=== PATIENT | female | born 1960 | race Hispanic/Latino ===

== ENCOUNTER 2018-12-21 06:32 | Emergency (ER) | payer SELFPAY ==
--- NOTE | 2018-12-21 06:48 | EDPHYS ---
Physician Documentation [facility] Name: Lolly Asher Age: 58 yrs Sex: Female : 1960 Arrival Date: 12/21/2018 Time: 06:35 Bed 18 Private MD: ED Physician Yusuf Uribe HPI: 12/21 06:49 This 58 yrs old Female presents to ER via Unassigned with complaints of kb Laceration To Head. 06:49 The patient has a laceration related to: opened blanket washer and a metal piece that was kb in there cut head occurred at work, and there are no complicating factors. The injury was accidental. The laceration(s) is(are) located on the top of head. Onset: The symptoms/episode began/occurred just prior to arrival. Associated signs and symptoms: The patient has no apparent associated signs or symptoms. The patient has not experienced similar symptoms in the past. The patient has not recently seen a physician. Historical: - Allergies: 06:45 No Known Allergies; cc3 - PSHx: 06:45 ; Hernia repair; cc3 - Immunization history:: Adult Immunizations up to date, Last tetanus immunization: unknown. - Social history:: Smoking status: Patient/guardian denies using tobacco, never smoked. - Ebola Screening: : No symptoms or risks identified at this time. ROS: 06:49 Constitutional: Negative for fever, chills, and weight loss, Cardiovascular: Negative kb for chest pain, palpitations, and edema, Respiratory: Negative for shortness of breath, cough, wheezing, and pleuritic chest pain, Abdomen/GI: Negative for abdominal pain, nausea, vomiting, diarrhea, and constipation, MS/Extremity: Negative for injury and deformity, Neuro: Negative for headache, weakness, numbness, tingling, and seizure. 06:49 Skin: Positive for laceration(s), of the top of head. Exam: 06:49 Constitutional: This is a well developed, well nourished patient who is awake, alert, kb and in no acute distress. Head/Face: Normocephalic, atraumatic. Chest/axilla: Normal chest wall appearance and motion. Nontender with no deformity. No lesions are appreciated. Cardiovascular: Regular rate and rhythm with a normal S1 and S2. No gallops, murmurs, or rubs. Normal PMI, no JVD. No pulse deficits. Respiratory: Lungs have equal breath sounds bilaterally, clear to auscultation and percussion. No rales, rhonchi or wheezes noted. No increased work of breathing, no retractions or nasal flaring. Abdomen/GI: Soft, non-tender, with normal bowel sounds. No distension or tympany. No guarding or rebound. No evidence of tenderness throughout. MS/ Extremity: Pulses equal, no cyanosis. Neurovascular intact. Full, normal range of motion. Neuro: Awake and alert, GCS 15, oriented to person, place, time, and situation. Cranial nerves II-XII grossly intact. Motor strength 5/5 in all extremities. Sensory grossly intact. Cerebellar exam normal. Normal gait. 06:49 Skin: injury, laceration(s), the wound is approximately 0.5 cm(s), of the top of head, that can be described as clean, no foreign body, linear, without bleeding, well approximated.. Vital Signs: 06:45 BP 148 / 79; Pulse 70; Resp 18 S; Temp 98.6(O); Pulse Ox 98% on R/A; Weight 81.65 kg cc3 (R); Height 5 ft. 0 in. (152.40 cm) (R); 06:45 Body Mass Index 35.15 (81.65 kg, 152.40 cm) cc3 MDM: 06:46 Patient medically screened. kb 06:48 Data reviewed: vital signs, nurses notes. Data interpreted: Pulse oximetry: on room air kb is 100 %. Interpretation: normal. Counseling: I had a detailed discussion with the patient and/or guardian regarding: the historical points, exam findings, and any diagnostic results supporting the discharge/admit diagnosis, the need for outpatient follow up, a family practitioner, to return to the emergency department if symptoms worsen or persist or if there are any questions or concerns that arise at home. Administered Medications: 06:50 Drug: Tetanus-Diphtheria Toxoid Adult 0.5 ml {Customer Equipment Engineer: [employer]. Exp: cc3 08/16/2022. Lot #: [id number]. } Route: IM; Site: right deltoid; 07:00 Follow up: Response: No adverse reaction cc3 Disposition: 07:13 Co-signature as Attending Physician, Yusuf Uribe MD I agree with the assessment and jose plan of care. Disposition: 12/21/18 06:46 Discharged to Home. Impression: Laceration without foreign body of scalp. - Condition is Stable. - Discharge Instructions: Laceration Care, Adult, Jcld-mg-Ccyh, Head Injury, Adult, Lnov-is-Uuys. - Medication Reconciliation Form, Thank You Letter, Antibiotic Education, Prescription Opioid Use, Work release form form. - Follow up: Emergency Department; When: As needed; Reason: Worsening of condition. Follow up: Private Physician; When: 2 - 3 days; Reason: Recheck today's complaints, Continuance of care, Re-evaluation by your physician. Signatures: Bridgette Tang, KATHY-C YARN SALVAGER-Yusuf Vincent MD MD cha Munoz, Edgar, DICE DEALER DICE DEALER em Vy Preciado cc3 Corrections: (The following items were deleted from the chart) 07:11 06:46 12/21/2018 06:46 Discharged to Home. Impression: Laceration without foreign body em of scalp. Condition is Stable. Forms are Medication Reconciliation Form, Thank You Letter, Antibiotic Education, Prescription Opioid Use. Follow up: Emergency Department; When: As needed; Reason: Worsening of condition. Follow up: Private Physician; When: 2 - 3 days; Reason: Recheck today's complaints, Continuance of care, Re-evaluation by your physician. kb
--- NOTE | 2018-12-21 07:14 | ER ---
Nurse's Notes [facility] Name: Lolly Asher Age: 58 yrs Sex: Female : 1960 Arrival Date: 12/21/2018 Time: 06:35 Bed 18 Private MD: Diagnosis: Laceration without foreign body of scalp Presentation: 12/21 06:45 Presenting complaint: Patient states: Small cut wound to scalp sustained from a corner cc3 of a metal from falling on to it. Transition of care: patient was not received from another setting of care. Complicating Factors: There are no complicating factors for this patient. Onset of symptoms was December 21, 2018. Risk Assessment: Do you want to hurt yourself or someone else? Patient reports no desire to harm self or others. Initial Sepsis Screen: Does the patient meet any 2 criteria? No. Patient's initial sepsis screen is negative. Does the patient have a suspected source of infection? No. Patient's initial sepsis screen is negative. Care prior to arrival: None. 06:45 Method Of Arrival: Ambulatory cc3 06:45 Acuity: RACHELL 4 cc3 Triage Assessment: 06:45 General: Appears in no apparent distress. comfortable, Behavior is calm, cooperative, cc3 appropriate for age. Pain: Complains of pain in top of head. Injury Description: Laceration sustained to top of head is clean, superficial, 0.5 to 2.5 cm long, not bleeding, was sustained less than 30 minutes ago. is bleeding no active bleeding noted. Historical: - Allergies: 06:45 No Known Allergies; cc3 - PSHx: 06:45 ; Hernia repair; cc3 - Immunization history:: Adult Immunizations up to date, Last tetanus immunization: unknown. - Social history:: Smoking status: Patient/guardian denies using tobacco, never smoked. - Ebola Screening: : No symptoms or risks identified at this time. Screenin:45 Abuse screen: Denies threats or abuse. Denies injuries from another. Nutritional cc3 screening: No deficits noted. Tuberculosis screening: No symptoms or risk factors identified. Fall Risk Ambulatory Aid- None/Bed Rest/Nurse Assist (0 pts). Gait- Normal/Bed Rest/Wheelchair (0 pts) Mental Status- Oriented to own ability (0 pts). Assessment: 06:45 General: Appears in no apparent distress. comfortable, Behavior is calm, cooperative, cc3 appropriate for age. Pain: Complains of pain in top of head. Neuro: Level of Consciousness is awake, alert, obeys commands, Oriented to person, place, time, situation, Appropriate for age. Cardiovascular: Denies chest pain, Patient's skin is warm and dry. Respiratory: Airway is patent Respiratory effort is even, unlabored, Respiratory pattern is regular, symmetrical. GI: Abdomen is round non-distended. : No signs and/or symptoms were reported regarding the genitourinary system. EENT: No signs and/or symptoms were reported regarding the EENT system. Derm: Skin is intact, is healthy with good turgor, Skin is pink, warm \T\ dry. normal. Musculoskeletal: Circulation, motion, and sensation intact. Range of motion: intact in all extremities. Injury Description: Laceration sustained to top of head, scalp is clean, superficial, 0.5 to 2.5 cm long, not bleeding, was sustained less than 30 minutes ago. is bleeding no active bleeding noted. 07:11 Reassessment: Patient appears in no apparent distress at this time. Patient and/or iw family updated on plan of care and expected duration. Pain level reassessed. I agree with above assessment by Mich Floyd LVN. Vital Signs: 06:45 BP 148 / 79; Pulse 70; Resp 18 S; Temp 98.6(O); Pulse Ox 98% on R/A; Weight 81.65 kg cc3 (R); Height 5 ft. 0 in. (152.40 cm) (R); 06:45 Body Mass Index 35.15 (81.65 kg, 152.40 cm) cc3 ED Course: 06:35 Patient arrived in ED. ds1 06:37 Bridgette Tang FNP-C is PHCP. kb 06:37 Yusuf Uribe MD is Attending Physician. kb 06:45 Arm band placed on right wrist. Patient notified of wait time. cc3 06:45 Patient has correct armband on for positive identification. Bed in low position. Call cc3 light in reach. Side rails up X 1. Pulse ox on. NIBP on. 07:00 Report given to LOPEZ Epps. cc3 07:03 Triage completed. cc3 07:05 Wound care: to laceration located on top of head was cleaned with Hibiclens, Patient em tolerated well. 07:08 Mich Floyd LVN is Primary Nurse. em 07:10 No provider procedures requiring assistance completed. Patient did not have IV access em during this emergency room visit. Administered Medications: 06:50 Drug: Tetanus-Diphtheria Toxoid Adult 0.5 ml {Fish Agent: [employer]. Exp: cc3 08/16/2022. Lot #: [id number]. } Route: IM; Site: right deltoid; 07:00 Follow up: Response: No adverse reaction cc3 Outcome: 06:46 Discharge ordered by . buddy 07:11 Discharged to home ambulatory. em 07:11 Condition: good 07:11 Discharge instructions given to patient, Instructed on discharge instructions, follow up and referral plans. wound care, Demonstrated understanding of instructions, follow-up care, wound care. 07:11 Patient left the ED. em Signatures: Bridgette Tang, HEALTH PROGRAM ANALYST-C HEALTH PROGRAM ANALYST-Ckb Mich Floyd LVN LVN em Cherri Mathis ds1 Chani Williamson, RN RN iw Vy Preciado cc3 Corrections: (The following items were deleted from the chart) 17:53 07:15 Reassessment: Patient appears in no apparent distress at this time. Patient iw and/or family updated on plan of care and expected duration. Pain level reassessed. I agree with above assessment by Mich Floyd LVN iw
[2018-12-21] MEDS ORDERED: TETANUS & DIPHTHERIA TOX,ADULT 0.5 ML VIAL ONE (07:15)
== END 2018-12-21 07:11 | disposition home or self-care (01) ==
LOC: ER 06:32
DX: S01.01XA Laceration without foreign body of scalp, initial encounter (principal); Z23 Encounter for immunization
CPT/HCPCS: 90471; 90714; 99283

== ENCOUNTER 2024-03-29 12:32 | Emergency (ER) | payer BC ==
--- OUTSIDE RECORDS SUMMARY | 2024-03-29 12:35 | XMS REPORT | Continuity of Care Document ---
Author Name Unknown Address [address] [facility] [address] [place] [address] [facility] Address [address] [facility] [address] [place] [address] Care Team Providers Care Manager Supplier Name Role Phone Nathaniel Dunne Primary Care Physician AGAPITO HERNANDEZ Attending Clinician Unavailab JEFFREY Brooks Attending Clinician Unavail able NATHANIEL DUNNE Attending Clinician Unavailable NAYAN DANIELLE Attending Clinician UnavailNAYAN Ch Attending Clinician UnavailKATHIA Montes Attending Clinician Unavailable Mel Brito Attending Clinician MEL JAMES Attending Clinician Unavailable Unknown, Attending Attending Clinician Unavailab lukasz RICH Attending Clinician Unavailable HELEN DEY Attending Clinician Unavailable MD DAHIANA Attending Clinician Unavailab SHA Carpenter Attending Clinician Unavailable ROSI CANO [facility] Attending Clinicia n Unavailable MENDEZ LOJA Attending Clinician UnaDILCIA Velez Attending Clinician Unavailable ROSS COLBY Attending Clinician Unavailable LAB45 Attending Clinician Unavailable LAB90 Attending Clinician Unavailable Team, [facility] Attending Clinicia n Unavailable Raji ROBLES, Courtney Zavala Attending Clinician Unavailab GHAZALA Parikh Attending Clinician Unavailable Gege Dooley Attending Clinician [phone] Ghazala Cardozo PA-C Attending Clinician [phone] FLOYD GONZALEZ Attending Clinician Unavailable Doctor Unassigned, Shiro Attending Clinician U navailable GEGE BLOOM Attending Clinician UnavailAGAPITO Brar Admitting Clinician Unavailab lal Payers Payer Name Policy Type Policy Number Effective Date Expirati on Date Source [facility] [id number] 2019 00:00:00 [place] [id number] 2023 00:00:00 BCBS 2 [id number] 2023 00:00:00 Problems Condition Name Condition Details Condition Category Status Onset Date Resolution Date Last Treatment Date Treating Clinician Comments Source Left foot pain Left foot pain Disease Active 2023-05 00:00: 00 [facility] Closed displaced fracture of fifth metatarsal bone of left foot Closed displaced fracture of fifth metatarsal bone of left foot Disease Active 2023-05 00:00: 00 [facility] DM type 2 with diabetic mixed hyperlipid emia (multi HCC) DM type 2 with diabetic mixed hyperlipid emia (multi HCC) Disease Active 2022-05 00:00: 00 Rosi Sedeyviold - Externa l Eczema Eczema Disease Active 2022-05 00:00: 00 Rosi Sedeyviold - Externa l HTN (hypertens ion) HTN (hypertens ion) Disease Active 2022-05 00:00: 00 Rosi Sedeyviold - Externa l Obesity Obesity Disease Active 2022-05 00:00: 00 Rosi Sedeyviold - Externa l Psoriasis Psoriasis Disease Active 2022-05 00:00: 00 Rosi Seybold - Externa l Chronic back pain Chronic back pain Disease Active 2022-05 00:00: 00 Rosi Seybold - Externa l Hypertensi on Hypertensi on Disease Active 2- 00:00: 00 [facility] Obesity Obesity Disease Active 07-23 00:00: 00 [facility] Allergies, Adverse Reactions, Alerts Allergy Name Allergy Type Status Severity Reaction(s) Onset Date Inactive Date Treating Clinician Comments Source NO KNOWN ALLERGIE S Drug Class Active [facility] Social History Social Habit Start Date Stop Date Quantity Comments Source ASSERTION Not Rosi Frias - External History of Occupation Rosi Frias - External Sexual orientation [facility] Alcoholic beverage intake 2024-03-29 00:00:00 2024-03-29 00:00:00 Current drinker of alcohol (finding) Rosi Frias - External History of Social function 2024-03-27 00:00:00 2024-03-27 00:00:00 [facility] Alcohol Comment 2024-03-07 00:00:00 2024-03-07 00:00:00 Socially [facility] Alcohol intake 2023-08-17 00:00:00 2023-08-17 00:00:00 Current drinker of alcohol (finding) Rosi Frias - External Tobacco use and exposure 2023-05-05 00:00:00 2023-05-05 00:00:00 Smokeless tobacco non-user Rosi Frias - External Education 2023-04-28 00:00:00 2023-04-28 00:00:00 16 Rosi Frias - External Sex 2023-04-04 16:25:04 2023-04-04 16:25:04 Female (finding) Rosi Frias - External Exposure to SARS-CoV-2 (event) 2021-05-14 00:00:00 2021-06-13 10:16:00 Not sure [facility] History SDOH Alcohol Frequency 2019-07-22 00:00:00 2019-07-22 00:00:00 2 [facility] History SDOH Alcohol Std Drinks 2019-07-22 00:00:00 2019-07-22 00:00:00 1 [facility] History SDOH Alcohol Binge 2019-07-22 00:00:00 2019-07-22 00:00:00 2 [facility] Sex assigned at 1960 00:00:00 1960 00:00:00 [facility] Smoking Status Start Date Stop Date Source Never smoked tobacco Rosi Wilcox External Medications Ordered Medication Name Filled Medication Name Start Date Stop Date Current Medication? Ordering Clinician Indication Dosage Frequency Signature (SIG) Comments Components Source Betamethaso ne Dipropionat e 0.05 % apply externally Cream 2023-05 12:13: 57 03-29 00:00 :00 No Q.5D Apply 1 applicatio n. topically 2 times daily. [facility] Atorvastati n Calcium 20 MG oral Tablet 2023-05 00:00: 00 Yes [id number] 3 20mg QD Take 1 tablet (20 mg total) by mouth nightly. [facility] Losartan Potassium (COZAAR) 50 MG oral Tablet 2023-05 00:00: 00 Yes [id number] 50mg QD Take 1 tablet (50 mg total) by mouth daily. [facility] hydroCHLORO thiazide 25 MG oral Tablet 2023-05 00:00: 00 Yes [id number] 25mg QD Take 1 tablet (25 mg total) by mouth daily. [facility] Tirzepatide 7.5 MG/0.5ML subcutaneou s Solution Auto-inject or 2023-05 00:00: 00 Yes [id number] 3 7.5mg Q1W Inject 7.5 mg into the skin once a week. [facility] Mounjaro 7.5 MG/0.5ML solution pen-injecto r 2023-05 09:38: 49 Yes INJECT 7.5 MG INTO THE SKIN ONCE A WEEK. [facility] traMADol (Ultram) 50 MG tablet 2023-05 00:00: 00 Yes [id number] 50mg Q6H Take 1 tablet (50 mg total) by mouth every 6 (six) hours if needed for severe pain. [facility] traMADoL 50 mg tablet 2023-05 00:00: 00 03-08 04:59 :00 Yes [id number] 50mg Take 1 tablet by mouth every 8 (eight) hours as needed for Pain (scale 7-10) for up to 3 days. Indication s: acute pain [facility] Tirzepatide (Mounjaro) 7.5 MG/0.5ML subcutaneou s Solution Pen-injecto r 5-10 00:00: 00 03-29 00:00 :00 No [id number] 3 7.5mg Q1W Inject 0.5 mL (7.5 mg total) into the skin once a week. [facility] Meloxicam 15 MG oral Tablet 08-24 00:00: 00 03-29 00:00 :00 No 15mg QD Take 1 tablet (15 mg total) by mouth daily. [facility] Tramadol HCl (ULTRAM) 50 MG oral Tablet 08-23 00:00: 00 Yes 50mg Q.[id number] 3D Take 1 tablet (50 mg total) by mouth 3 times daily as needed for pain. [facility] Methocarbam ol 750 MG oral Tablet 08-23 00:00: 03-29 00:00 :00 No TAKE ONE (1) TABLET(S) BY MOUTH THREE TIMES A DAY FOR PAIN NEEDED, (3 TABLETS MAX PER DAY). [facility] Hyoscyamine Sulfate 0.125 MG sublingual SL Tab 08-16 00:00: 00 03-29 00:00 :00 No [id number] .125mg Q4H Take 1 tablet (0.125 mg total) by mouth every 4 hours as needed for cramping. [facility] Ondansetron (ZOFRAN) 4 MG oral TABLET DISPERSIBLE 08-16 00:00: 00 03-29 00:00 :00 No [id number] 4mg Q.[id number] 3D Take 1 tablet (4 mg total) by mouth every 8 hours as needed for nausea. [facility] Tirzepatide (Mounjaro) 5 MG/0.5ML subcutaneou s Solution Pen-injecto r 2-28 00:00: 00 Yes [id number] 3 5mg Inject 0.5 mL (5 mg total) into the skin once a week. [facility] hydroCHLORO thiazide 25 MG oral Tablet 07-26 00:00: 00 03-29 00:00 :00 No [id number] 25mg QD Take 1 tablet (25 mg total) by mouth daily. [facility] Tizanidine HCl 2 MG oral Tablet 07-26 00:00: 00 03-29 00:00 :00 No [id number] 2mg QD Take 1 tablet (2 mg total) by mouth nightly as needed. [facility] Betamethaso ne Dipropionat e 0.05 % apply externally Cream 06-22 11:00: 27 Yes Apply 1 applicatio n. topically 2 times daily. [facility] Clobetasol Propionate 0.05 % apply externally Ointment 06-22 00:00: 00 03-29 00:00 :00 No [id number] Apply to affected areas twice daily for up to two weeks. Then use as needed to affected areas.. [facility] Atorvastati n Calcium 20 MG oral Tablet 05-29 00:00: 00 03-29 00:00 :00 No [id number] 3 20mg QD Take 1 tablet (20 mg total) by mouth daily. [facility] Cetirizine (ZYRTEC) 10 MG oral Tablet 2022-05 00:00: 00 Yes 10mg Take 1 tablet (10 mg total) by mouth daily. [facility] Cetirizine (ZYRTEC) 10 MG oral Tablet 2022-05 00:00: 00 03-29 00:00 :00 No 1{tbl} QD Take 1 tablet (10 mg total) by mouth daily. [facility] Atorvastati n Calcium 20 MG oral Tablet 2022-05 00:00: 00 Yes [id number] 3 20mg Take 1 tablet (20 mg total) by mouth daily. [facility] Betamethaso ne Dipropionat e 0.05 % apply externally Cream 2022-05 11:18: 57 Yes Apply 1 applicatio n. topically 2 times daily. [facility] hydroCHLORO thiazide 25 MG oral Tablet 2022-05 00:00: 00 Yes [id number] 25mg Take 1 tablet (25 mg total) by mouth daily. [facility] Amlodipine Besylate 10 MG oral Tablet 2022-05 00:00: 00 05-05 00:00 :00 No [id number] 10mg Take 1 tablet (10 mg total) by mouth daily. [facility] hydroCHLORO thiazide 12.5 MG oral Capsule 2022-05 15:21: 26 04-28 00:00 :00 No 12.5mg Take 1 capsule (12.5 mg total) by mouth daily. [facility] Losartan Potassium (COZAAR) 50 MG oral Tablet 2022-05 15:16: 53 04-28 00:00 :00 No 50mg Take 1 tablet (50 mg total) by mouth daily. [facility] Metformin HCl 500 MG oral Tablet 2022-05 15:07: 20 04-28 00:00 :00 No 500mg Take 1 tablet (500 mg total) by mouth daily (with breakfast) . [facility] Desipramine HCl 25 MG oral Tablet 2022-05 15:06: 24 04-28 00:00 :00 No 25mg Take 1 tablet (25 mg total) by mouth. [facility] Atenolol 25 MG oral Tablet 2022-05 15:05: 46 04-28 00:00 :00 No 25mg Take 1 tablet (25 mg total) by mouth. [facility] Betamethaso ne Dipropionat e 0.05 % apply externally Cream 2022-05 15:02: 31 Yes Apply 1 applicatio n. topically 2 times daily. [facility] Tirzepatide (Mounjaro) 2.5 MG/0.5ML subcutaneou s Solution Pen-injecto r 2022-05 00:00: 00 Yes [id number] 3 2.5mg Inject 0.5 mL (2.5 mg total) into the skin once a week. [facility] Tizanidine HCl 2 MG oral Tablet 2022-05 00:00: 00 Yes [id number] 2mg QD Take 1 tablet (2 mg total) by mouth nightly as needed. [facility] hydroCHLORO thiazide 12.5 MG oral Capsule 2022-05 00:00: 00 Yes [id number] 12.5mg Take 1 capsule (12.5 mg total) by mouth daily. [facility] Losartan Potassium (COZAAR) 50 MG oral Tablet 2022-05 00:00: 00 03-29 00:00 :00 No [id number] 50mg QD Take 1 tablet (50 mg total) by mouth daily. [facility] Cetirizine HCl (ZyrTEC Allergy) 10 MG oral Capsule 2022-05 00:00: 00 06-22 00:00 :00 No [id number] 10mg Take 1 capsule (10 mg total) by mouth daily. [facility] Mounjaro 2.5 MG/0.5ML subcutaneou s Solution Pen-injecto r 2022-05 0- 00:00: 00 04-28 00:00 :00 No INJECT 2.5 MG SUBCUTANEO USLY WEEKLY. [facility] desipramine 25 mg tablet 06-13 10:23: 17 Yes 25mg Take 25 mg by mouth. [facility] atenoloL 25 mg tablet 06-13 10:23: 16 Yes 25mg Take 25 mg by mouth. [facility] benzonatate 200 mg capsule 06-13 00:00: 00 06-24 05:59 :00 No [id number] 200mg Take 1 capsule by mouth 3 (three) times daily as needed for Cough for up to 10 days. [facility] citalopram 10 mg tablet 06-06 00:00: 00 Yes 10mg Take 10 mg by mouth daily. [facility] TRUE METRIX GLUCOSE TEST STRIP strip 2020-05 00:00: 00 Yes USE TO TEST BLOOD SUGAR TWICE A DAY. [facility] TRUE METRIX AIR GLUCOSE METER Misc 2020-05 00:00: 00 Yes USE TO TEST BLOOD SUGAR TWICE A DAY. [facility] ondansetron 4 mg disintegrat ing tablet 11-17 00:00: 00 Yes 4mg Take 1 tablet by mouth every 4 (four) hours as needed for Nausea and Vomiting (N/V). [facility] Immunizations Ordered Immunization Name Filled Immunization Name Date Status Comments Source Tdap- (Boostrix, Adacel) Unknown Completed Rosi Seybold - External Shingles IM (Shingrix) Unknown Completed Rosi Seybold - External Influenza, Injectable, Mdck, Preservative Free, Quadrivalent Unknown Completed Rosi Seybold - External Tdap- (Boostrix, Adacel) Unknown Completed Rosi Seybold - External Shingles IM (Shingrix) Unknown Completed Rosi Seybold - External Influenza, Injectable, Mdck, Preservative Free, Quadrivalent Unknown Completed Rosi Seybold - External Tdap- (Boostrix, Adacel) Unknown Completed Rosi Seybold - External Shingles IM (Shingrix) Unknown Completed Rosi Seybold - External Influenza, Injectable, Mdck, Preservative Free, Quadrivalent Unknown Completed Rosi Seybold - External Tdap- (Boostrix, Adacel) Unknown Completed Rosi Seybold - External Shingles IM (Shingrix) Unknown Completed Rosi Seybold - External Influenza, Injectable, Mdck, Preservative Free, Quadrivalent Unknown Completed Rosi Seybold - External Tdap- (Boostrix, Adacel) Unknown Completed Rosi Seybold - External Shingles IM (Shingrix) Unknown Completed Rosi Seybold - External Influenza, Injectable, Mdck, Preservative Free, Quadrivalent Unknown Completed Rosi Seybold - External Vital Signs Vital Name Observation Time Observation Value Comments S myke Systolic blood pressure 2024-03-29 17:06:00 124 mm[Hg] Rosi Avelar ld - External Diastolic blood pressure 2024-03-29 17:06:00 78 mm[Hg] Rosi Avelar ld - External Heart rate 2024-03-29 17:06:00 85 /min Jarad Frias - External Body temperature 2024-03-29 17:06:00 36.56 Kadie Rosi Frias - External Respiratory rate 2024-03-29 17:06:00 16 /min Rosi Frias - External Body height 2024-03-29 17:06:00 152.4 cm Samira ey ybold - External Body weight 2024-03-29 17:06:00 82.283 kg Samira ey Seybold - External BMI 2024-03-29 17:06:00 35.43 kg/m2 Samira ey ybold - External Oxygen saturation in Arterial blood by Pulse oximetry 2024-03-29 17:06:00 99 /min Rosi krishnan - External Body height 2024-03-27 15:23:00 [facility] Body weight 2024-03-27 15:23:00 78[facility] BMI 2024-03-27 15:23:00 33.59 kg/m2 [facility] Body height 2024-03-14 15:03:00 152.4 cm [facility] Body weight 2024-03-14 15:03:00 78.019 [facility] BMI 2024-03-14 15:03:00 33.59 kg/m2 [facility] Body height 2024-03-07 14:36:00 152.4 cm [facility] Body weight 2024-03-07 14:36:00 78.019 [facility] BMI 2024-03-07 14:36:00 33.59 kg/m2 [facility] Systolic blood pressure 2024-03-04 23:27:00 147 mm[Hg] [facility] Diastolic blood pressure 2024-03-04 23:27:00 79 mm[Hg] [facility] Heart rate 2024-03-04 23:24:00 80 /min [facility] Body temperature 2024-03-04 23:24:00 37 Kadie [facility] Respiratory rate 2024-03-04 23:24:00 16 /min [facility] Body height 2024-03-04 23:24:00 152.4 cm [facility] Body weight 2024-03-04 23:24:00 79.107 kg [facility] BMI 2024-03-04 23:24:00 34.06 kg/m2 [facility] Oxygen saturation in Arterial blood by Pulse oximetry 2024-03-04 23:24:00 100 /min [facility] Systolic blood pressure 2023-05-05 18:03:00 146 mm[Hg] Rosi Seybo ld - External Diastolic blood pressure 2023-05-05 18:03:00 80 mm[Hg] Rosi Seybo ld - External Heart rate 2023-05-05 18:03:00 64 /min Kelse y Seybold - External Body temperature 2023-05-05 17:15:00 36.83 Kadie Rosi Seybold - External Respiratory rate 2023-05-05 17:15:00 16 /min Rosi Seybold - External Body height 2023-05-05 17:15:00 152.4 cm Samira ey Seybold - External Body weight 2023-05-05 17:15:00 85.73 kg Samira ey Seybold - External BMI 2023-05-05 17:15:00 36.91 kg/m2 Samira ey Seybold - External Systolic blood pressure 2023-04-28 20:33:00 177 mm[Hg] Rosi Seybo ld - External Diastolic blood pressure 2023-04-28 20:33:00 88 mm[Hg] Rosi Seybo ld - External Heart rate 2023-04-28 20:33:00 80 /min Kelse y Seybold - External Respiratory rate 2023-04-28 20:33:00 20 /min Rosi Seybold - External Body height 2023-04-28 20:33:00 152.4 cm Samira ey Seybold - External Body weight 2023-04-28 20:33:00 86.183 kg Samira ey Seybold - External BMI 2023-04-28 20:33:00 37.11 kg/m2 Samira Frias - External Oxygen saturation in Arterial blood by Pulse oximetry 2023-04-28 20:33:00 100 /min Rosi Avelar ld - External Systolic blood pressure 2021-06-13 16:22:00 142 mm[Hg] [facility] Diastolic blood pressure 2021-06-13 16:22:00 81 mm[Hg] [facility] Heart rate 2021-06-13 16:21:00 85 /min [facility] Body temperature 2021-06-13 16:21:00 37 Kadie [facility] Body height 2021-06-13 16:21:00 152.4 cm [facility] Body weight 2021-06-13 16:21:00 85.73 kg [facility] BMI 2021-06-13 16:21:00 36.91 kg/m2 [facility] Oxygen saturation in Arterial blood by Pulse oximetry 2021-06-13 16:21:00 97 /min [facility] Procedures Procedure Date / Time Performed Performing Clinicia n Source XR FOOT 3+ VW LEFT 2024-03-04 23:47:24 Mel James [facility] Plan of Care Planned Activity Planned Date Details Comments Source Encounters Start Date/Time End Date/Time Encounter Type Admission Type Attending Clinicians Care Facility Care Department Encounter ID Source 2021-03-25 12:50:34 Outpatient AGAPITO RUELAS [facility] [id number] [facility] 2024-04-23 13:15:00 2024-04-23 13:15:00 Outpatient JEFFREY JEROME [facility] [id number] [facility] 2024-03-29 11:45:00 2024-03-29 11:45:00 Outpatient NATHANIEL DUNNE [id number] Rosi Frias 2024-03-27 10:30:00 2024-03-27 11:06:13 Outpatient [facility] [id number] [facility] 2024-03-27 10:30:00 2024-03-27 11:06:03 [facility] 1..840.114 350.1.13.58 [id number] [id number] [facility] 2024-03-27 09:45:00 2024-03-27 09:45:00 Outpatient ARIC CHUJEFFREY [facility] [id number] [facility] 2024-03-14 10:15:00 2024-03-14 11:24:39 Outpatient [facility] [id number] [facility] 2024-03-14 10:15:00 2024-03-14 11:24:30 Office [facility] [place] 1..840.114 350.1.13.58 9.2.7.2.686 [id number] [facility] 2024-03-13 10:15:00 2024-03-13 10:15:00 Outpatient ARIC CHU JEFFREY [facility] [id number] [facility] 2024-03-11 16:00:00 2024-03-11 16:00:00 Outpatient NAYAN CHUNG CRAIG [facility] [id number] [facility] 2024-03-07 09:45:00 2024-03-07 10:33:41 Outpatient [facility] [id number] [facility] 2024-03-07 09:45:00 2024-03-07 10:33:31 Office Visit [facility] [place] 1..840.114 350.1.13.58 9.2.7.2.686 [id number] [facility] 2024-03-06 15:00:00 2024-03-06 15:00:00 Outpatient KATHIA RICHARDS [facility] [id number] [facility] 2024-03-05 00:00:00 2024-03-06 11:30:53 Telephone Mel James [facility] 1..840.114 350.1.13.10 4.2.7.2.686 [id number] [facility] 2024-03-04 18:38:06 2024-03-04 23:59:00 Outpatient R MEL JAMES [facility] [id number] [facility] 2024-03-04 18:38:06 2024-03-04 23:59:00 Hospital Encounter Mel James [facility] 1.2.840.114 350.1.13.10 [id number] [id number] [facility] 2024-03-04 17:40:00 2024-03-04 19:18:43 Urgent Care Mel James Unknown, Attending [facility] 1.2.840.114 350.1.13.10 4.2.7.2.686 [id number] [facility] 2023-11-16 00:00:00 2023-11-16 00:00:00 Outpatient LAYLA VARGAS [id number] [facility] 2023-11-15 00:00:00 2023-11-15 00:00:00 Outpatient LAYLA VARGAS [id number] [facility] 2023-11-14 00:00:00 2023-11-14 00:00:00 Outpatient LAYLA VARGAS [id number] [facility] 2023-11-09 00:00:00 2023-11-09 00:00:00 Outpatient HELEN DEY [id number] [facility] 2023-10-30 00:00:00 2023-10-30 00:00:00 Outpatient MD ROSI MILLER [id number] [facility] 2023-10-06 00:00:00 2023-10-06 00:00:00 Outpatient NATHANIEL DUNNE [id number] [facility] 2023-10-05 00:00:00 2023-10-05 00:00:00 Outpatient PREZAS, NATHANIEL VARGAS ROSI [id number] [facility]i [facility] 2023-09-29 00:00:00 2023-09-29 00:00:00 Outpatient PREZASNATHANIEL ROSI [id number] Rosi Seybold 2023-08-18 00:00:00 2023-08-18 00:00:00 Outpatient CABRAL, SHA VARGAS ROSI [id number] [facility]i [facility] 2023-08-17 14:20:00 2023-08-17 14:20:00 Outpatient CABRALSHA MCMANUS ROSI [id number] Rosi Seybold 2023-08-17 00:00:00 2023-08-17 00:00:00 Outpatient GROUP, ROSI ROSI VARGAS [id number] Rosi Seybold 2023-07-25 00:00:00 2023-07-25 00:00:00 Outpatient PREZAS, NATHANIEL ROSI VARGAS [id number] Rosi [facility] 2023-06-22 10:45:00 2023-06-22 10:45:00 Outpatient LOJA, MENDEZ ROSI VARGAS [id number] Rosi [facility] 2023-06-21 14:00:00 2023-06-21 14:00:00 Outpatient LOJA, MENDEZ ROSI VARGAS [id number] Rosi [facility] 2023-06-09 00:00:00 2023-06-09 00:00:00 Outpatient LOJA, DILCIA ROSI VARGAS [id number] Rosi [facility] 2023-06-08 00:00:00 2023-06-08 00:00:00 Outpatient LOJA, DILCIA ROSI VARGAS [id number] [facility]i [facility] 2023-05-29 00:00:00 2023-05-29 00:00:00 Outpatient LOJA, DILCIA ROSI VARGAS [id number] Rosi [facility] 2023-05-28 00:00:00 2023-05-28 00:00:00 Outpatient LOJA, DILCIA ROSI VARGAS [id number] Rosi Seybold 2023-05-16 00:00:00 2023-05-16 00:00:00 Outpatient PREZAS, NATHANIEL VARGAS ROSI [id number] Rosi Seybteo 2023-05-16 00:00:00 2023-05-16 00:00:00 Outpatient PREZAS, NATHANIEL VARGAS ROSI [id number] Rosi Seybold 2023-05-15 00:00:00 2023-05-15 00:00:00 Outpatient PREZAS, NATHANIEL VARGAS ROSI [id number] Rosi Seybteo 2023-05-15 00:00:00 2023-05-15 00:00:00 Outpatient PREZAS, NATHANIEL VARGAS ROSI [id number] Rosi [facility] 2023-05-10 09:40:00 2023-05-10 09:40:00 Outpatient LASHAROSS [facility] [id number] [facility]23-[facility]-09 00:00:00 2023-05-09 00:00:00 Outpatient PREZAS, NATHANIEL VARGAS [facility] [id number] [facility] 2023-05-05 12:45:00 2023-05-05 12:45:00 Outpatient ROSI ROSI [id number] Rosi Seybold 2023-05-05 12:40:00 2023-05-05 12:40:00 [facility] [id number] [facility] 2023-05-05 12:20:00 2023-05-05 12:20:00 Outpatient LAB45 ROSI VARGAS [id number] Rosi Seybold 2023-05-05 11:00:00 2023-05-05 11:00:00 Outpatient LOJA, DILCIAALEJANDRA VARGAS [id number] [facility]i Sey[facility] 2023-05-03 15:45:00 2023-05-03 15:45:00 Outpatient MENDEZ LOJA [id number] Rosi Seybold 2023-04-28 15:35:00 2023-04-28 15:35:00 Outpatient LAB90 ROSI VARGAS [id number] Rosi Seybold 2023-04-28 14:30:00 2023-04-28 14:30:00 Outpatient PREZAS, NATHANIEL ROSI VARGAS [id number] Rosi Frias 2022-01-11 00:00:00 2022-01-11 00:00:00 Telephone Team, [facility] 1.2.840.114 350.1.13.10 [id number] [id number] [facility] 2021-07-23 00:00:00 2021-07-23 00:00:00 Telephone Team, [facility] 1.2.840.114 350.1.13.10 4.2.7.2.686 [id number] [facility] 2021-06-14 00:00:00 2021-06-14 00:00:00 Letter (Out) Courtney Alegria [facility] 1.2.840.114 350.1.13.10 4.2.7.2.686 [id number] [facility] 2021-06-13 10:20:00 2021-06-13 11:19:12 Outpatient R FILOMENA GHAZALA [facility] [id number] [facility] 2021-06-13 10:20:00 2021-06-13 10:40:00 Urgent Care Micky, Gege Cardozo, [facility] MEDICAL OFFICE BUILDING [id number] [facility] 2020-07-28 09:40:00 2020-07-28 09:40:00 Outpatient R [facility] [id number] [facility] 2020-06-30 15:00:00 2020-06-30 15:00:00 Outpatient R FLOYD GONZALEZ [facility] [id number] [facility] 2020-05-07 08:00:00 2020-05-07 08:00:00 Outpatient R [facility] [id number] [facility] 2020-05-02 19:00:00 2020-05-02 19:00:00 Outpatient R [facility] [id number] [facility] 2019-12-11 00:00:00 2019-12-11 00:00:00 Patient Secure Msg Doctor Unassigned, Shiro [facility] [id number] [facility] 2019-12-09 10:20:00 2019-12-09 10:20:00 Outpatient R GEGE BLOOM [facility] [id number] [facility] 2019-07-24 12:24:00 2019-07-24 12:24:00 Outpatient R AGAPITO HERNANDEZ [facility] [id number] [facility] Results Test Description Test Time Test Comments Results Resul t Comments Source XR FOOT 3+ VW LEFT 8 01:42:32 Ordering physician: MEL JAMES Clinical indication: Left foot injury. Injury yesterday. Comparison: None Technique: Left foot, 3 views Technical quality: Adequate Findings: Dorsal soft tissue swelling is evident. There is an oblique fracture of thedistal fifth metatarsal diaphysis and neck, with minimal displacement. Noother fractures are identified. Slight deformity of the head of the secondmetatarsal may be developmental or related to remote trauma. There isnarrowing of the interphalangeal joints, compatible with degenerativechanges. A plantar calcaneal spur is present. [facility] Notes Date/Time Note Provider Source 2024-03-27 10:37:13 Associated Problem(s): Closed displaced fracture of fifth metatarsal bone of left foot Emily Hebert MD, Family Medicine PGY 3 resident accompanied me with the consultation of this patient visit. The following studies were reviewed and discussed during today's visit: Radiographs. Closed treatment without manipulation of the fracture. Continue immobilization, restrict activities, and schedule follow-up with x-ray on arrival. Return in 3 week(s) with X-ray in immobilization to ensure continued acceptable alignment of the fracture. Consider using an over the counter topical medication such as Salonpas/Icy Hot/BioFreeze. Patient verbalized understanding and agrees with plan of care. Has opted for non operative treatment. [facility] 2024-03-14 10:42:03 Associated Problem(s): Closed displaced fracture of fifth metatarsal bone of left foot Short boot DME (durable medical equipment) provided. Rest, ice, compression, elevation (RICE). Closed treatment without manipulation of the fracture. Continue treatment following previous fracture reduction. Return in 2 week(s) with X-ray in immobilization to ensure continued acceptable alignment of the fracture. Consider using an over the counter topical medication such as Salonpas/Icy Hot/BioFreeze. Kimberlyn Patel, PT with [facility], accompanied me with the consultation of this patient visit. Patient verbalized understanding and agrees with plan of care. She will continue with non operative treatment at this time, and discussed surgical referral, and she has opted for conservative management at this time. [facility] 2024-03-07 10:12:25 Associated Problem(s): Closed displaced fracture of fifth metatarsal bone of left foot Emily Hebert MD, Family Medicine PGY 3 resident accompanied me with the consultation of this patient visit. Short boot DME (durable medical equipment) provided. Rest, ice, compression, elevation (RICE). Physical therapy orders for outpatient rehabilitation prescribed (please remember to take the order to a physical therapy location of your choice). If no improvement may consider additional imaging. A home exercise program is encouraged. The following studies were reviewed and discussed during today's visit: Radiographs. Closed treatment without manipulation of the fracture. Continue immobilization, restrict activities, and schedule follow-up with x-ray on arrival. Return in 1 week(s) with X-ray in immobilization to ensure continued acceptable alignment of the fracture. Consider using an over the counter topical medication such as Salonpas/Icy Hot/BioFreeze. Patient verbalized understanding and agrees with plan of care. [facility] 2024-03-07 09:45:00 Addended by: JEFFREY JEROME on: 03/07/2024 10:38 AM Modules accepted: Orders, Level of Service [facility] 2024-03-06 11:27:23 Called number on file. Spoke to provider and patient may come back to urgent care and receive crutches. Pt voiced understanding. Ruby Garvey RN 03/06/2024 11:30 AM Ruby Garvey RN [facility] 2024-03-05 10:14:50 Patient is calling, stating that they were seen in urgent care yesterday and received a boot for a broken foot. Patient states that they are having a hard time walking and are now requesting crutches. Please advise. Elida Chavez [facility] 2023-06-22 11:01:33 Chief Complaint Patient presents with Rash Skin Problem SANDI [facility]os[facility]
--- NOTE | 2024-03-29 15:27 | ER ---
Nurse's Notes [facility] Name: Lolly Asher Age: 63 yrs Sex: Female : 1960 Arrival Date: 03/29/2024 Time: 12:32 Bed 10 Private MD: Diagnosis: Epistaxis Presentation: 03/29 12:40 Chief complaint: Patient states: nose bleed x 1 week off and on that got worse today. me1 Coronavirus screen: Vaccine status: Patient reports receiving the 2nd dose of the covid vaccine. Ebola Screen: No symptoms or risks identified at this time. Initial Sepsis Screen: Does the patient meet any 2 criteria? No. Patient's initial sepsis screen is negative. Does the patient have a suspected source of infection? No. Patient's initial sepsis screen is negative. Risk Assessment: Do you want to hurt yourself or someone else? Patient reports no desire to harm self or others. Onset of symptoms was March 22, 2024. 12:40 Method Of Arrival: Ambulatory [facility] 12:40 Acuity: RACHELL 4 me1 Historical: - Allergies: 12:41 No Known Allergies; me1 - PMHx: 12:41 Diabetes mellitus; Hypertensive disorder; me1 - PSHx: 12:41 Repair of inguinal hernia; section; me1 - Immunization history:: Adult Immunizations up to date. - Infectious Disease History:: Denies. - Social history:: Smoking status: Patient denies any tobacco usage or history of. Screenin:36 [facility] ED Fall Risk Assessment (Adult) History of falling in the last 3 months, me1 including since admission No falls in past 3 months (0 pts) Confusion or Disorientation No (0 pts) Intoxicated or Sedated No (0 pts) Impaired Gait No (0 pts) Mobility Assist Device Used No (0 pt) Altered Elimination No (0 pt) Score/Fall Risk Level 0 - 2 = Low Risk Maintained a safe environment, Provided non-skid footwear, Hourly rounding (assess needs \T\ fall precautionary measures) done. Abuse screen: Denies threats or abuse. Nutritional screening: No deficits noted. Tuberculosis screening: No symptoms or risk factors identified. Assessment: 13:36 General: Appears comfortable, well groomed, well developed, well nourished, Behavior is me1 calm, cooperative, appropriate for age, Reports nose bleed from left nare that started about a week ago intermittently but is bleeding worse today. Pain: Denies pain. Neuro: Level of Consciousness is awake, alert, obeys commands, Oriented to person, place, time, situation, Appropriate for age. Cardiovascular: Patient's skin is warm and dry. Respiratory: Airway is patent Respiratory effort is even, unlabored, Respiratory pattern is regular, symmetrical. GI: No signs and/or symptoms were reported involving the gastrointestinal system. : No signs and/or symptoms were reported regarding the genitourinary system. EENT: Nares with bleeding noted on left. Derm: Skin is intact, is healthy with good turgor, Skin is pink, warm \T\ dry. Musculoskeletal: No signs and/or symptoms reported regarding the musculoskeletal system. Vital Signs: 12:40 BP 165 / 89; Pulse 77; Resp 16; Temp 98.7; Pulse Ox 98% ; Weight 82.1 kg; Height 5 ft. me1 0 in. ; Pain 2/10; 14:00 BP 158 / 77; Pulse 73; Resp 15; Pulse Ox 100% ; me1 15:32 BP 154 / 73; Pulse 70; Resp 15; Temp 98.4; Pulse Ox 100% ; me1 12:40 Body Mass Index 35.35 (82.10 kg, 152.4 cm) me1 12:40 Pain Scale: Adult tx1 ED Course: 12:34 Patient arrived in ED. im 12:36 Joanne Flores MD is Attending Physician. gb1 12:41 Triage completed. me1 12:41 Arm band placed on Patient placed in waiting room. me1 13:36 Maria Del Rosario Bell, TRAVIS is Primary Nurse. me1 13:36 Patient has correct armband on for positive identification. Bed in low position. Call tx1 light in reach. Side rails up X 1. Provided Education on: POC. Verbalized understanding.. 13:36 No provider procedures requiring assistance completed. me1 15:26 Malathi Valerio MD is Referral Physician. gb1 15:32 Patient did not have IV access during this emergency room visit. me1 Administered Medications: No medications were administered Medication: 13:36 VIS not applicable for this client. me1 Outcome: 15:26 Discharge ordered by . gb1 15:33 Discharged to home ambulatory, with family, me1 15:33 Condition: stable 15:33 Discharge instructions given to patient, family, Instructed on discharge instructions, follow up and referral plans. Demonstrated understanding of instructions, follow-up care, 15:33 Patient left the ED. me1 Signatures: Saritha York Michelle, RN RN me1 Joanne Flores MD MD gb1 Corrections: (The following items were deleted from the chart) 13:36 12:40 Chief complaint: Patient states: nose bleed x 1 week off and on that got worse me1 today. me1
--- NOTE | 2024-03-29 15:34 | EDPHYS ---
Physician Documentation [facility] Name: Lolly Asher Age: 63 yrs Sex: Female : 1960 Arrival Date: 03/29/2024 Time: 12:32 Bed 10 Private MD: ED Physician Joanne Flores HPI: 03/29 15:32 This 63 yrs old Female presents to ER via Ambulatory with complaints of Nose gb1 Bleed. 15:32 63-year-old female with acute that she has had intermittent nosebleeds for the last few gb1 weeks. Her nose started to bleed this morning out of both naris. She denies any digital trauma or any other falls recently. She is not on any kind of blood thinners. She has a history of diabetes and hypertension. She denies being sick recently. She held pressure and then the nosebleed stopped after 10 minutes.. Historical: - Allergies: 12:41 No Known Allergies; me1 - PMHx: 12:41 Diabetes mellitus; Hypertensive disorder; me1 - PSHx: 12:41 Repair of inguinal hernia; section; me1 - Immunization history:: Adult Immunizations up to date. - Infectious Disease History:: Denies. - Social history:: Smoking status: Patient denies any tobacco usage or history of. Exam: 15:32 Constitutional: This is a well developed, well nourished patient who is awake, alert, gb1 and in no acute distress. Head/Face: Normocephalic, atraumatic. Eyes: Pupils equal round and reactive to light, extra-ocular motions intact. Lids and lashes normal. Conjunctiva and sclera are non-icteric and not injected. Cornea within normal limits. Periorbital areas with no swelling, redness, or edema. ENT: Nares patent dried blood in both naris. No sign of a septal hematoma on exam. No active bleeding on exam., no septal abnormalities noted. Tympanic membranes are normal and external auditory canals are clear. Oropharynx with no redness, swelling, or masses, exudates, or evidence of obstruction, uvula midline. Mucous membranes moist. Neck: Trachea midline, no thyromegaly or masses palpated, and no cervical lymphadenopathy. Supple, full range of motion without nuchal rigidity, or vertebral point tenderness. No Meningismus. Chest/axilla: Normal chest wall appearance and motion. Nontender with no deformity. No lesions are appreciated. Cardiovascular: Regular rate and rhythm with a normal S1 and S2. No gallops, murmurs, or rubs. Normal PMI, no JVD. No pulse deficits. Respiratory: Lungs have equal breath sounds bilaterally, clear to auscultation and percussion. No rales, rhonchi or wheezes noted. No increased work of breathing, no retractions or nasal flaring. Abdomen/GI: Soft, non-tender, with normal bowel sounds. No distension or tympany. No guarding or rebound. No evidence of tenderness throughout. Vital Signs: 12:40 BP 165 / 89; Pulse 77; Resp 16; Temp 98.7; Pulse Ox 98% ; Weight 82.1 kg; Height 5 ft. me1 0 in. ; Pain 2/10; 14:00 BP 158 / 77; Pulse 73; Resp 15; Pulse Ox 100% ; me1 15:32 BP 154 / 73; Pulse 70; Resp 15; Temp 98.4; Pulse Ox 100% ; me1 12:40 Body Mass Index 35.35 (82.10 kg, 152.4 cm) me1 12:40 Pain Scale: Adult me1 MDM: 13:31 Medical Screening Exam initiated gb1 Administered Medications: No medications were administered Disposition Summary: 03/29/24 15:26 Discharge Ordered Notes: Location: Home gb1 Condition: Stable gb1 Diagnosis - Epistaxis gb1 Followup: gb1 - With: Malathi Valerio MD - When: As needed - Reason: If symptoms return Discharge Instructions: - Discharge Summary Sheet gb1 - Nosebleed, Adult, [id number] gb1 Forms: - Medication Reconciliation Form gb1 - Antibiotic Education gb1 - Prescription Opioid Use gb1 - Patient Portal Instructions gb1 - Leadership Thank You Letter gb1 Signatures: Maria Del Rosario Bell RN RN ia1 Joanne Flores MD MD gb1
[2024-03-29 15:46] VITALS: O2SAT 100
[2024-03-29 15:47] VITALS: BP 154/73; TEMP 98.4
== END 2024-03-29 15:33 | disposition home or self-care (01) ==
LOC: ER 12:32
DX: R04.0 Epistaxis (principal)
CPT/HCPCS: 99283